=== PATIENT | female | born 1930 | race Caucasian/White ===

== ENCOUNTER 2016-07-16 11:05 | Emergency (ER) | payer MEDICARE ==
[2016-07-16 11:52] VITALS: BP 111/60
--- NOTE | 2016-07-16 12:01 | UC ---
Throat Pain/Nasal Tal HPI - HPI Summary HPI Summary: COUGH X 1 WEEKS + NASAL CONGESTION, PND, NO FEVER, NO CHILLS - History of Current Complaint Chief Complaint: UCRespiratory Stated Complaint: COUGH,CONGESTION,TIGHT CHEST Time Seen by Provider: 07/16/16 11:54 Hx Obtained From: Patient Hx Last Menstrual Period: n/a Onset/Duration: Gradual Onset, Lasting Days - 7, Still Present Severity: Moderate Cough: Nonproductive Associated Signs & Symptoms: Positive: Sinus Discomfort, Nasal Discharge. Negative: Wheezing, Fever, Rash - Allergies/Home Medications Allergies/Adverse Reactions: Allergies Allergy/AdvReac Type Severity Reaction Status Date / Time Codeine Allergy Intermediate Vomiting Verified 07/16/16 11:52 Home Medications: Home Medications DULoxetine DR CAP* [Cymbalta CAP*] 30 mg PO DAILY 07/16/16 [History Confirmed ] Insulin Lispro [Humalog Kwikpen] 4 - 16 unit SC TID AC 07/16/16 [History Confirmed 07/16/16] Omeprazole CAP* [Prilosec CAP* 20 MG] 20 mg PO DAILY 07/16/16 [History Confirmed 07/16/16] amLODIPine TAB* [Norvasc 5 mg TAB*] 5 mg PO DAILY 07/16/16 [History Confirmed ] PMH/Surg Hx/FS Hx/Imm Hx Endocrine History Of: Reports: Diabetes - INSULIN DEPENDENT Cardiovascular History Of: Reports: Cardiac Disorders - [place], Hypertension Denies: Pacemaker/ICD, Congestive Heart Failure Respiratory History Of: Denies: Asthma GI/ History Of: Denies: Renal Disease Neurological History Of: Reports: CVA Psychological History Of: Reports: Depression - Surgical History Surgical History: Yes Surgery Procedure, Year, and Place: hysterectomy; cardiac stents - Family History Known Family History: Negative: Diabetes - Social History Alcohol Use: None Substance Use Type: None Smoking Status (MU): Never Smoked Tobacco Have You Smoked in the Last Year: No - Immunization History Most Recent Influenza Vaccination: 2013 Most Recent Tetanus Shot: Within 10 years Most Recent Pneumonia Vaccination: 2011 Review of Systems Constitutional: Chills, Fatigue Skin: Negative Eyes: Negative ENT: Nasal Discharge Respiratory: Cough Cardiovascular: Negative All Other Systems Reviewed And Are Negative: Yes Physical Exam Triage Information Reviewed: Yes Appearance: Well-Appearing, No Pain Distress, Well-Nourished Vital Signs: Initial Vital Signs Temp 98.4 F 07/16/16 11:50 Pulse 86 07/16/16 11:50 Resp 20 07/16/16 11:50 BP 111/60 07/16/16 11:50 Pulse Ox 98 07/16/16 11:50 Vital Signs Reviewed: Yes Eye Exam: Normal Eyes: Positive: Conjunctiva Clear ENT: Positive: Normal ENT inspection, Hearing grossly normal, Nasal congestion, Nasal drainage. Negative: Pharyngeal erythema Neck: Positive: Supple, Nontender, No Lymphadenopathy Respiratory: Positive: Chest non-tender, Lungs clear, Normal breath sounds Cardiovascular: Positive: RRR, No Murmur, Pulses Normal Skin Exam: Normal Throat Pain/Nasal Course/Dx - Differential Dx/Diagnosis Provider Diagnoses: URI Discharge - Discharge Plan Condition: Stable Disposition: HOME Prescriptions: Benzonatate CAP* [Tessalon 100 MG CAP*] 100 mg PO TID PRN #30 cap PRN Reason: Cough Patient Education Materials: Upper Respiratory Infection (ED) Referrals: Indra Armijo MD [Primary Care Provider] - 5 Days
== END 2016-07-16 12:32 | disposition home or self-care (01) ==
LOC: UCCORT 11:05
DX: J06.9 Acute upper respiratory infection, unspecified (principal); E11.9 Type 2 diabetes mellitus without complications; Z79.4 Long term (current) use of insulin; I21.3 ST elevation (STEMI) myocardial infarction of unspecified site; Z95.5 Presence of coronary angioplasty implant and graft; I15.9 Secondary hypertension, unspecified; Z86.73 Personal history of transient ischemic attack (TIA), and cerebral infarction without residual deficits; F32.9 Major depressive disorder, single episode, unspecified; Z90.710 Acquired absence of both cervix and uterus; Z88.5 Allergy status to narcotic agent
CPT/HCPCS: 99212; G0463

== ENCOUNTER 2017-07-22 11:06 | Emergency (ER) | payer MEDICARE ==
[2017-07-22] MEDS ORDERED: NS 0.9% 1000 ML* 1,000 ML IV SCH (12:15)
--- NOTE | 2017-07-22 12:30 | RAD ---
Indication: Abdominal pain. Single frontal view of the chest performed at 1212 hours was reviewed. Comparison is made with previous exam dated February 24, 2016. No mediastinal shift is noted. Heart is of normal size and configuration. Lung barrera appear clear. IMPRESSION: NO ACTIVE CARDIOPULMONARY DISEASE IS NOTED.
[2017-07-22 12:46] LABS: ABS Basophils 0.1 10^3/ul (0-0.2); ABS Eosinophils 0.2 10^3/ul (0-0.6); ABS Lymphocytes 2.2 10^3/ul (1.0-4.8); ABS Monocytes 0.6 10^3/ul (0-0.8); ABS Neutrophils 3.7 10^3/ul (1.5-7.7); ABS Nucleated RBC 0 10^3/ul; Hematocrit 34 % (35-47); Hemoglobin 11.7 g/dl (12.0-16.0); Lymphocyte % 32.2 % (25-47); Mean Corpuscular HGB Conc 34 g/dl (31-36); Mean Corpuscular Hemoglobin 32 pg (27-31); Mean Corpuscular Volume 92 fL (80-97); Nucleated Red Blood Cells % 0.1; Platelet Count 142 10^3/ul (150-450); Red Blood Count 3.72 10^6/ul (4.0-5.4); Red Cell Distribution Width 13 % (10.5-15); White Blood Count 6.8 10^3/ul (3.5-10.8)
[2017-07-22 12:55] LABS: INR 0.86 (0.77-1.02)
[2017-07-22 13:24] LABS: EGFR Non-African American 29.9 (>60)
--- NOTE | 2017-07-22 13:31 | RAD ---
Indication: Right upper quadrant pain. Real-time sonography of the right upper quadrant was performed. The liver measures 15.4 cm in length. No focal lesions or intrahepatic ductal dilatation is noted. The gallbladder demonstrates no gallstones, pericholecystic fluid or wall thickening. The common duct measures up to 4.8 mm. The visualized portions of the pancreas head and proximal body are unremarkable. The right kidney measures 9.0 x 4.4 x 4.7 cm without hydronephrosis. IMPRESSION: No evidence of cholelithiasis or biliary duct dilatation is noted.
--- NOTE | 2017-07-22 15:28 | RAD ---
Indication: Abdominal pain. CT of the abdomen and pelvis was performed without oral or IV contrast administration. Coronal and sagittal reconstructed images were obtained. Comparison is made with previous exam dated September 29, 2012. Lung bases demonstrate no pleural fluid, nodules or masses. Heart is of normal size without evidence of pericardial effusion. Liver is normal in size. No focal lesions or intrahepatic ductal dilatation is noted. Gallbladder demonstrates no calcified gallstones. No pericholecystic fluid or wall thickening is noted. Common duct is not dilated. Pancreas demonstrates no mass or pancreatic duct dilatation. No adrenal masses are noted. The kidneys demonstrate no hydronephrosis. Atherosclerotic aorta is noted. No dilated loops of bowel are noted. The colon is filled with stool. CT of the pelvis demonstrates no retroperitoneal or pelvic lymphadenopathy. The urinary bladder is otherwise unremarkable. Patient is status post hysterectomy. No free fluid is identified. No hernias are noted. Lumbar spine demonstrates degenerative disc disease at multiple levels. IMPRESSION: No obstructive uropathy is noted. No abnormally dilated loops of bowel are noted. No other masses or fluid collections are noted.
[2017-07-22 15:51] LABS: Urine Appearance Clear; Urine Blood Negative (Negative); Urine Color Yellow; Urine Ketones Negative (Negative); Urine Protein Negative (Negative); Urine Specific Gravity 1.016 (1.010-1.030); Urine Urobilinogen Negative (Negative)
--- NOTE | 2017-07-22 16:31 | ED ---
Milan Mcgraw Jennifer, scribed for Anand Rosenberg MD on 07/22/17 at 1201 . Abdominal Pain/Female - HPI Summary HPI Summary: The patient is an 87 year old female who presents with abdominal pain and right flank pain for one week. She rates the pain a 7-8/10, but states it has worsened in the last couple of days. The patient complains of diffuse abdominal tenderness but states its the worst at the RUQ, and it radiates to her right flank. She additionally complains of chills, intermittent fevers, feeling gassy after eating, nausea, diarrhea and constipation. Her last bowel movement was this morning, and it was normal/dark. The patient denies blood in the stool, dysuria, hematuria, shortness of breath, and chest pain. - History of Current Complaint Chief Complaint: EDAbdPain Stated Complaint: ABD/FLANK PAIN Time Seen by Provider: 07/22/17 11:38 Hx Obtained From: Patient Hx Last Menstrual Period: n/a Onset/Duration: Sudden Onset, Lasting Weeks - about 1 week, Still Present Timing: Constant Severity Initially: Moderate Severity Currently: Moderate Pain Intensity: 6 Pain Scale Used: 0-10 Numeric Location: Diffuse, Discrete At: RUQ - Worse at Radiates: Yes Radiates to: Flank - right Aggravating Factor(s): Nothing Alleviating Factor(s): Nothing Associated Signs and Symptoms: Positive: Other: - flank pain, nausea, gaseous after eating, chills, intermittent fever, diarrhea and constipation. NEGATIVE: blood in stool, shortness of breath, chest pain, dysuria, hematuria. Allergies/Adverse Reactions: Allergies Allergy/AdvReac Type Severity Reaction Status Date / Time codeine Allergy Vomiting Verified 07/22/17 11:08 Home Medications: Home Medications Atorvastatin* [Lipitor*] 10 mg PO QPM 07/22/17 [History Confirmed 07/22/17] DULoxetine CAP* [Cymbalta CAP*] 60 mg PO DAILY 07/22/17 [History Confirmed ] Insulin GLARGINE(*) [Lantus(*)] 30 units SUBCUT QPM 07/22/17 [History Confirmed 07/22/17] Insulin LISPRO* [HumaLOG*] 0 units SUBCUT DIRECTED 07/22/17 [History Confirmed 07/22/17] Metoprolol Succinate XL TAB* [Toprol XL TAB*] 25 mg PO QPM 07/22/17 [History Confirmed 07/22/17] amLODIPine TAB* [Norvasc 5 mg TAB*] 5 mg PO QPM 07/22/17 [History Confirmed ] PMH/Surg Hx/FS Hx/Imm Hx Endocrine/Hematology History: Reports: Hx Diabetes - INSULIN DEPENDENT Cardiovascular History: Reports: Hx Hypertension, Other Cardiovascular Problems/ Disorders - Stent 07/10/2014, CVA, DM II, CHRONIC KIDNEY DISEASE STAGE III Denies: Hx Congestive Heart Failure, Hx Pacemaker/ICD Respiratory History: Denies: Hx Asthma GI History: Reports: Hx Irritable Bowel History: Denies: Hx Renal Disease Musculoskeletal History: Reports: Hx Back Problems Sensory History: Reports: Hx Contacts or Glasses Denies: Hx Hearing Aid Opthamlomology History: Reports: Hx Contacts or Glasses Neurological History: Reports: Other Neuro Impairments/Disorders - STROKE Psychiatric History: Reports: Hx Depression Denies: Hx Panic Disorder - Surgical History Surgery Procedure, Year, and Place: hysterectomy; cardiac stents Hx Anesthesia Reactions: No - Immunization History Date of Tetanus Vaccine: PT STATES UNSURE Date of Influenza Vaccine: NONE Infectious Disease History: No Infectious Disease History: Reports: Hx Shingles - HISTORY OF, Hx Tuberculosis - HISTORY OF (DOCUMENTED IN CHART BUT PATIENT DENIES) Denies: Traveled Outside the [place] in Last 30 Days - Family History Known Family History: Negative: Diabetes - Social History Alcohol Use: None Substance Use Type: Reports: None Smoking Status (MU): Never Smoked Tobacco Have You Smoked in the Last Year: No Review of Systems Negative: Chest Pain Negative: Shortness Of Breath Gastrointestinal: Other - Constipation Positive: Abdominal Pain, Diarrhea, Nausea, Other - Gassy after eating Positive: flank pain - right side. Negative: dysuria, hematuria All Other Systems Reviewed And Are Negative: Yes Physical Exam - Summary Physical Exam Summary: General: well-appearing, no pain distress Skin: warm, color reflects adequate perfusion, dry Head: normal Eyes: EOMI, MAGALI ENT: normal Neck: supple, nontender Respiratory: CTA, breath sounds present Cardiovascular: RRR Abdomen: soft, RUQ tenderness Bowel: hypoactive bowel sounds Musculoskeletal: normal, strength/ROM intact Neurological: normal, sensory/motor intact, A&O x3 Psychological: affect/mood appropriate Triage Information Reviewed: Yes Vital Signs On Initial Exam: Initial Vitals Temp Pulse Resp BP Pulse Ox 97.9 F 80 14 154/71 98 07/22/17 11:08 07/22/17 11:08 07/22/17 11:08 07/22/17 11:08 07/22/17 11:08 Vital Signs Reviewed: Yes Diagnostics - Vital Signs Vital Signs Temp Pulse Resp BP Pulse Ox 07/22/17 11:08 97.9 F 80 14 154/71 98 - Laboratory Lab Results: Lab Results 07/22/17 07/22/17 07/22/17 Range/Units 12:35 12:35 12:35 WBC (3.5-10.8) 10^3/ul RBC (4.0-5.4) 10^6/ul Hgb (12.0-16.0) g/dl Hct (35-47) % MCV (80-97) fL MCH (27-31) pg MCHC (31-36) g/dl RDW (10.5-15) % Plt Count (150-450) 10^3/ul MPV (7.4-10.4) um3 Neut % (Auto) (38-83) % Lymph % (Auto) (25-47) % [place] % (Auto) (0-7) % Eos % (Auto) (0-6) % Baso % (Auto) (0-2) % Absolute Neuts (auto) (1.5-7.7) 10^3/ul Absolute Lymphs (auto) (1.0-4.8) 10^3/ul Absolute Monos (auto) (0-0.8) 10^3/ul Absolute Eos (auto) (0-0.6) 10^3/ul Absolute Basos (auto) (0-0.2) 10^3/ul Absolute Nucleated RBC 10^3/ul Nucleated RBC % INR (Anticoag Therapy) 0.86 (0.77-1.02) APTT 27.6 (26.0-36.3) seconds Sodium 135 L (139-145) mmol/L Potassium 5.4 H (3.5-5.0) mmol/L Chloride 103 (101-111) mmol/L Carbon Dioxide 24 (22-32) mmol/L Anion Gap 8 (2-11) mmol/L BUN 35 H (6-24) mg/dL Creatinine 1.63 H (0.51-0.95) mg/dL Est GFR ( Amer) 38.5 (>60) Est GFR (Non-Af Amer) 29.9 (>60) BUN/Creatinine Ratio 21.5 H (8-20) Glucose 280 H (70-100) mg/dL Lactic Acid (0.5-2.0) mmol/L Calcium 9.7 (8.6-10.3) mg/dL Magnesium 1.5 L (1.9-2.7) mg/dL Total Bilirubin 0.40 (0.2-1.0) mg/dL AST 13 (13-39) U/L ALT 12 (7-52) U/L Alkaline Phosphatase 52 (34-104) U/L Total Creatine Kinase 66 (10-223) U/L CK-MB (CK-2) 3.1 (0.6-6.3) ng/mL Troponin I 0.00 (<0.04) ng/mL C-Reactive Protein 1.72 (< 5.00) mg/L B-Natriuretic Peptide 61 ( - 100) pg/mL Total Protein 7.1 (6.4-8.9) g/dL Albumin 4.1 (3.2-5.2) g/dL Globulin 3.0 (2-4) g/dL Albumin/Globulin Ratio 1.4 (1-3) Lipase 63 (11.0-82.0) U/L TSH 1.01 (0.34-5.60) mcIU/mL Urine Color Urine Appearance Urine pH (5-9) Ur Specific [place] (1.010-1.030) Urine Protein (Negative) Urine Ketones (Negative) Urine Blood (Negative) Urine Nitrate (Negative) Urine Bilirubin (Negative) Urine Urobilinogen (Negative) Ur Leukocyte Esterase (Negative) Urine WBC (Auto) (Absent) Urine RBC (Auto) (Absent) Ur Squamous Epith Cells (Absent) Urine Bacteria (Absent) Urine Glucose (Negative) 07/22/17 07/22/17 07/22/17 Range/Units 12:35 12:35 15:30 WBC 6.8 (3.5-10.8) 10^3/ul RBC 3.72 L (4.0-5.4) 10^6/ul Hgb 11.7 L (12.0-16.0) g/dl Hct 34 L (35-47) % MCV 92 (80-97) fL MCH 32 H (27-31) pg MCHC 34 (31-36) g/dl RDW 13 (10.5-15) % Plt Count 142 L (150-450) 10^3/ul MPV 10.0 (7.4-10.4) um3 Neut % (Auto) 54.3 (38-83) % Lymph % (Auto) 32.2 (25-47) % [place] % (Auto) 9.5 H (0-7) % Eos % (Auto) 3.0 (0-6) % Baso % (Auto) 1.0 (0-2) % Absolute Neuts (auto) 3.7 (1.5-7.7) 10^3/ul Absolute Lymphs (auto) 2.2 (1.0-4.8) 10^3/ul Absolute Monos (auto) 0.6 (0-0.8) 10^3/ul Absolute Eos (auto) 0.2 (0-0.6) 10^3/ul Absolute Basos (auto) 0.1 (0-0.2) 10^3/ul Absolute Nucleated RBC 0 10^3/ul Nucleated RBC % 0.1 INR (Anticoag Therapy) (0.77-1.02) APTT (26.0-36.3) seconds Sodium (139-145) mmol/L Potassium (3.5-5.0) mmol/L Chloride (101-111) mmol/L Carbon Dioxide (22-32) mmol/L Anion Gap (2-11) mmol/L BUN (6-24) mg/dL Creatinine (0.51-0.95) mg/dL Est GFR ( Amer) (>60) Est GFR (Non-Af Amer) (>60) BUN/Creatinine Ratio (8-20) Glucose (70-100) mg/dL Lactic Acid 1.9 (0.5-2.0) mmol/L Calcium (8.6-10.3) mg/dL Magnesium (1.9-2.7) mg/dL Total Bilirubin (0.2-1.0) mg/dL AST (13-39) U/L ALT (7-52) U/L Alkaline Phosphatase (34-104) U/L Total Creatine Kinase (10-223) U/L CK-MB (CK-2) (0.6-6.3) ng/mL Troponin I (<0.04) ng/mL C-Reactive Protein (< 5.00) mg/L B-Natriuretic Peptide ( - 100) pg/mL Total Protein (6.4-8.9) g/dL Albumin (3.2-5.2) g/dL Globulin (2-4) g/dL Albumin/Globulin Ratio (1-3) Lipase (11.0-82.0) U/L TSH (0.34-5.60) mcIU/mL Urine Color Yellow Urine Appearance Clear Urine pH 5.0 (5-9) Ur Specific [place] 1.016 (1.010-1.030) Urine Protein Negative (Negative) Urine Ketones Negative (Negative) Urine Blood Negative (Negative) Urine Nitrate Negative (Negative) Urine Bilirubin Negative (Negative) Urine Urobilinogen Negative (Negative) Ur Leukocyte Esterase 1+ A (Negative) Urine WBC (Auto) Trace(0-5/hpf) (Absent) Urine RBC (Auto) Trace(0-2/hpf) (Absent) Ur Squamous Epith Cells Present A (Absent) Urine Bacteria Absent (Absent) Urine Glucose 1+(50 mg/dl) A (Negative) Result Diagrams: 07/22/17 12:35 07/22/17 12:35 Lab Statement: Any lab studies that have been ordered have been reviewed, and results considered in the medical decision making process. - Radiology CXR Xray Interpretation: No Acute Changes - NO ACTIVE CARDIOPULMONARY DISEASE IS NOTED. Dr. Rosenberg has reviewed this report. Radiology Interpretation Completed By: Radiologist - CT CT Abd/Pel CT Interpretation: No Acute Changes - No obstructive uropathy is noted. No abnormally dilated loops of bowel are noted. No other masses or fluid collections are noted. Dr. Rosenberg has reviewed this report. 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 Interpreted by a radiologist. IMPRESSION: No evidence of cholelithiasis or biliary duct dilatation is noted. Dr. Rosenberg has reviewed this report. Abdominal Pain Fem Course/Dx - Course Course Of Treatment: Medications reviewed. Allergies noted. BP noted and advised to follow up with PCP. DISCUSSED RESULTS WITH PATIENT AND HER FAMILY. NO PEAKED T WAVES ON EKG. NO CHEST PAIN. THEY PLAN TO F/U WITH DR ZHANG; RETURN IF WORSE. - Diagnoses Provider Diagnoses: HTN (hypertension), Abdominal pain, Hyperkalemia Discharge - Sign-Out/Discharge Documenting (check all that apply): Discharge - Discharge Plan Condition: Stable Disposition: HOME Patient Education Materials: Acute Abdominal Pain (ED), Hyperkalemia (ED) Referrals: Indra Armijo MD [Primary Care Provider] - Additional Instructions: FOLLOW UP WITH YOUR DOCTOR. RETURN TO THE EMERGENCY DEPARTMENT FOR ANY WORSENING OF YOUR CONDITION; PAIN, FEVER, VOMITING, BLOOD IN YOUR STOOL, YOU FEEL ILL OR QUESTIONS OR CONCERNS. - Billing Disposition and Condition Condition: STABLE Disposition: HOME The documentation as recorded by the Milan mauricio Jennifer accurately reflects the service I personally performed and the decisions made by me, Anand Rosenberg MD.
[2017-07-22 16:47] VITALS: BP 140/64
== END 2017-07-22 16:47 | disposition home or self-care (01) ==
LOC: ED 11:06
DX: R10.11 Right upper quadrant pain (principal); I12.9 Hypertensive chronic kidney disease with stage 1 through stage 4 chronic kidney disease, or unspecified chronic kidney disease; E11.22 Type 2 diabetes mellitus with diabetic chronic kidney disease; N18.3 Chronic kidney disease, stage 3 (moderate); Z79.4 Long term (current) use of insulin; E87.5 Hyperkalemia; Z79.899 Other long term (current) drug therapy; Z86.73 Personal history of transient ischemic attack (TIA), and cerebral infarction without residual deficits; Z95.5 Presence of coronary angioplasty implant and graft; R94.31 Abnormal electrocardiogram [ECG] [EKG]; I45.10 Unspecified right bundle-branch block
CPT/HCPCS: 36415; 71045; 74176; 76705; 80053; 81003; 81015; 82550; 82553; 83605; 83690; 83735; 83880; 84443; 84484; 85025; 85610; 85730; 86140; 87086; 93005; 99283

== ENCOUNTER 2018-05-26 12:24 | Emergency (ER) | payer MEDICARE ==
--- NOTE | 2018-05-26 12:44 | ED ---
HPI Chest Pain - HPI Summary HPI Summary: This patient is a 88 year old F presenting to [facility] accompanied by her grand- daughter and great granddaughter, who live with her, with a chief complaint of left anterior chest pain since yesterday afternoon around 1500, before a dinner of mac and cheese with diet Pepsi, until 5am this morning. Patient reports diaphoresis, one bout of vomiting, and a headache that is currently resolved. Pain is 6/10 at its worse. She states now, currently improved, chest pain is midline with epigastric pain and a acidy taste in her throat. She additionally reports a dry acidy cough and a history of GERD. Denies any other abdominal pain, urinary discomfort, and new LE pain. Recent influenza contact. Patient has previous MA four years ago with stents placed. Patient took 81mg of ASA this morning. PMHx includes CVA and DM. Medications include duloxetine, metoprolol, amlodipine, humalog, ASA, Tylenol, and vitamin D. - History of Current Complaint Chief Complaint: EDChestPainROMI Time Seen by Provider: 05/26/18 12:36 Hx Obtained From: Patient, Family/Readiness Paraprofessional - granddaughter and great granddaughter Hx Last Menstrual Period: n/a Onset/Duration: Started Days Ago Time of Onset: 15:00 - yesterday Timing: Constant Initial Severity: Mild Current Severity: Moderate Pain Intensity: 6 Pain Scale Used: 0-10 Numeric Chest Pain Location: Mid Sternal, Left Anterior Chest Pain Radiates: Yes Chest Pain Radiates To:: Neck Character: Burning Aggravating Factor(s): Other: - possible Pepsi Alleviating Factor(s): Nothing Associated Signs and Symptoms: Positive: Chest Pain, Diaphoresis, Cough, Vomiting Related History: Similar Episode/Dx as: - MA - Allergy/Home Medications Allergies/Adverse Reactions: Allergies Allergy/AdvReac Type Severity Reaction Status Date / Time codeine Allergy Severe Vomiting Verified 05/26/18 12:32 morphine Allergy Severe Vomiting Verified 05/26/18 12:32 Home Medications: Home Medications Aspirin 81 mg CHEW TAB* 81 mg PO DAILY 05/26/18 [History Confirmed 05/26/18] Cholecalciferol TAB* [Vitamin D TAB*] 2,000 units PO EVERY OTHER DAY 05/26/18 [ History Confirmed 05/26/18] Tylenol TAB* 1,000 mg PO Q6HR PRN 05/26/18 [History Confirmed 05/26/18] PMH/Surg Hx/FS Hx/Imm Hx Previously Healthy: No Endocrine/Hematology History: Reports: Hx Diabetes - Type II requiring insulin Cardiovascular History: Reports: Hx Hypertension, Hx Myocardial Infarction, Other Cardiovascular Problems/Disorders - Cardiac Stent 07/10/2014, CVA, DM II, CHRONIC KIDNEY DISEASE STAGE III Denies: Hx Congestive Heart Failure, Hx Pacemaker/ICD Respiratory History: Reports: Other Respiratory Problems/Disorders - hx TB Denies: Hx Asthma GI History: Reports: Hx Gastroesophageal Reflux Disease, Hx Irritable Bowel History: Reports: Hx Renal Disease - CKD stage III Musculoskeletal History: Reports: Hx Back Problems Sensory History: Reports: Hx Contacts or Glasses Denies: Hx Hearing Aid Opthamlomology History: Reports: Hx Contacts or Glasses Neurological History: Reports: Hx CVA - 10/2013, Other Neuro Impairments/ Disorders - hx Shingles Psychiatric History: Reports: Hx Depression Denies: Hx Panic Disorder - Surgical History Surgery Procedure, Year, and Place: hysterectomy; cardiac stents Hx Anesthesia Reactions: No - Immunization History Date of Tetanus Vaccine: PT STATES UNSURE Infectious Disease History: No Infectious Disease History: Reports: Hx Shingles, Hx Tuberculosis - HISTORY OF ( DOCUMENTED IN CHART BUT PATIENT DENIES) Denies: Traveled Outside the [place] in Last 30 Days - Family History Known Family History: Negative: Diabetes - Social History Lives: With Family Alcohol Use: None Substance Use Type: Reports: None Smoking Status (MU): Never Smoked Tobacco Have You Smoked in the Last Year: No Review of Systems Positive: Skin Diaphoresis Positive: Other - Acid taste in her mouth Positive: Chest Pain Positive: Cough Positive: Abdominal Pain, Vomiting Positive: no symptoms reported Musculoskeletal: Negative Skin: Negative Neurological: Negative Psychological: Normal All Other Systems Reviewed And Are Negative: Yes Physical Exam - Summary Physical Exam Summary: Appearance: Well-appearing, moderate pain distress, well-nourished Skin: Warm, color reflects adequate perfusion, dry Head: Normal Head/Face inspection, atraumatic Eyes: Conjunctiva clear ENT: Normal inspection Neck: Supple, no nodes, no JVD Respiratory: Lungs clear, normal breath sounds, no respiratory distress Cardio: RRR, No murmur, pulses normal, brisk capillary refill Abdomen: Soft, nontender Bowel sounds: Present Musculoskeletal: Strength Intact/ROM intact, no calf tenderness, no edema. Psychological: Normal Neuro: Alert, muscle tone normal, no focal deficit Triage Information Reviewed: Yes Vital Signs On Initial Exam: Initial Vitals Temp Pulse Resp BP Pulse Ox 97.1 F 83 16 160/75 98 05/26/18 12:28 05/26/18 12:28 05/26/18 12:28 05/26/18 12:28 05/26/18 12:28 Vital Signs Reviewed: Yes Diagnostics - Vital Signs Vital Signs Temp Pulse Resp BP Pulse Ox 05/26/18 12:28 97.1 F 83 16 160/75 98 - Laboratory Result Diagrams: 05/26/18 13:17 05/26/18 13:17 Lab Statement: Any lab studies that have been ordered have been reviewed, and results considered in the medical decision making process. - Radiology CXR Radiology Interpretation Completed By: Radiologist Summary of Radiographic Findings: NO ACTIVE CARDIOPULMONARY DISEASE. ED Physician has reviewed this report. - EKG 1244 Cardiac Rate: NL - 72 BPM EKG Rhythm: Sinus Rhythm ST Segment: Non-Specific Ectopy: None EKG Comparison: No Significant Change - c/w 07/22/17 Summary of EKG Findings: nml AVCT prolonged IVCT with RBBB, nml QTc. No acute changes. Re-Evaluation - Re-Evaluation First Eval Re-Evaluation Time: 13:05 Change: Unchanged Comment: Pt continues to have reflux symptoms with acid taste, and midsternal burning chest pain. Will try GI cocktail. Second Eval Re-Evaluation Time: 14:50 Change: Unchanged Comment: Pt continues to have GERD symptoms, will try protonix 40mg IV. Third Eval Re-Evaluation Time: 16:40 Change: Improved Comment: Discussed discharge disposition. Pt and family agree. Discussed GERD instructions. Pt is pain free. Did not like the GI cocktail. Did get relief from Protonix. Chest Pain Course/Dx - Course Course Of Treatment: 88 year old F presenting to [facility] accompanied by her grand- daughter and great granddaughter with a chief complaint of left anterior chest pain since yesterday afternoon around 1500, before a dinner of mac and cheese with diet pepsi, until 5am this morning. Patient reports diaphoresis, one bout of vomiting, and a headache that is currently resolved. Pain is 6/10 at its worse. She states now, currently improved, chest pain is midline with epigastric pain and a acidy taste in her throat. She additionally reports a dry acidy cough and a history of GERD. EKG reveals NSR at 72 BPM, nml AVCT prolonged IVCT with RBBB, nml QTc; no acute changes. No change from previous. CXR reveals, " NO ACTIVE CARDIOPULMONARY DISEASE" as per radiologist. Bloodwork reveals RBC 3.96 with normal WBC count and H/H, Platelets 136, MPV 10.6, D- dimer 478 (this is in normal range for age adjusted D-dimer), sodium 132, BUN/ creatinine ratio 24.4, glucose 441 (treated with normal insulin 10 U IV in ED), lactic acid 2.5 (no sepsis or ongoing issue), magnesium 1.2, AST 12, thyroxine 4.7 with normal TSH. Her stage III kidney disease is stable. Flu swab is negative. First troponin 0.0, second troponin 0.01. Patient is given GI cocktail (viscous lidocaine and liquid antacid) and did not like it but got some relief, and then 40mg of IV protonix to relieve GERD symptoms. Patient is addtionally given 10 units of insulin for glucose of 441. This was given close to discharge. Pt will repeat it this evening before evening meds and going to bed. Results reviewed with patient and family. Patient will be discharged home and is agreeable with this plan. Medications, allergies, and nursing notes reviewed. - Diagnoses Provider Diagnoses: Chest pain, GERD (gastroesophageal reflux disease), Hyperglycemia due to type 2 diabetes mellitus, Chronic kidney disease, stage 3, Stage III chronic kidney disease - Critical Care Time Critical Care Time: 30-74 min Discharge - Sign-Out/Discharge Documenting (check all that apply): Patient Departure - discharge Patient Received Moderate/Deep Sedation with Procedure: No - Discharge Plan Condition: Stable Disposition: HOME Prescriptions: Pantoprazole TAB * [Protonix TAB*] 40 mg PO DAILY #30 tab Patient Education Materials: Chest Pain (ED), Gastroesophageal Reflux Disease ( ED) Referrals: Indra Armijo MD [Primary Care Provider] - 2 Days Additional Instructions: We did not find a serious cause for your chest pain today. We think that some of your discomfort is from reflux, (GERD), or hiatal hernia. We recommend that you try some protonix 40mg orally daily, and that you follow up with with Dr. Armijo in the next 2 days. We gave you a "GI cocktail" that has lidocaine and Maalox as an attempt to help with the reflux. We also gave you some protonix IV. Your glucose was over 400 , so we gave you insulin 10U IV. You should follow your glucoses carefully. Return to the ER if any new or worsening symptoms. - Billing Disposition and Condition Condition: STABLE Disposition: Home - Attestation Statements Document Initiated by Alfredo: Yes Documenting Scribe: Tatiana Pandya Provider For Whom Alfredo is Documenting (Include Credential): Carin Hickman MD Scribe Attestation: Tatiana Mcgraw, scribed for Carin Hickman MD on 05/28/18 at 0142. Scribe Documentation Reviewed: Yes Provider Attestation: The documentation as recorded by the Tatiana mauricio accurately reflects the service I personally performed and the decisions made by , Carin Hickman MD Status of Scribe Document: Viewed
[2018-05-26] MEDS ORDERED: Lidocaine 2% VISCOUS* 15 ML UDC PO ONE (13:08)
[2018-05-26] MEDS ORDERED: Al Hydrox/Mg Hydrox/Simet LIQ* 30 ML UDC PO ONE (13:08)
[2018-05-26 13:30] LABS: Influenza A Molecular NEGATIVE (Negative); Influenza B Molecular NEGATIVE (Negative)
[2018-05-26 13:39] LABS: ABS Basophils 0 10^3/ul (0-0.2); ABS Eosinophils 0.2 10^3/ul (0-0.6); ABS Lymphocytes 1.6 10^3/ul (1.0-4.8); ABS Monocytes 0.6 10^3/ul (0-0.8); ABS Neutrophils 4.9 10^3/ul (1.5-7.7); ABS Nucleated RBC 0 10^3/ul; Eosinophil % 2.2 %; Hematocrit 37 % (35-47); Hemoglobin 12.2 g/dl (12.0-16.0); Lymphocyte % 22.1 %; Mean Corpuscular HGB Conc 33 g/dl (31-36); Mean Corpuscular Hemoglobin 31 pg (27-31); Mean Corpuscular Volume 93 fL (80-97); Mean Platelet Volume 10.6 fL (7.4-10.4); Nucleated Red Blood Cells % 0.1; Platelet Count 136 10^3/ul (150-450); Red Blood Count 3.96 10^6/ul (4.00-5.40); Red Cell Distribution Width 13 % (10.5-15); White Blood Count 7.2 10^3/ul (3.5-10.8)
[2018-05-26 13:40] LABS: Activated Partial Thrombo Time 26.5 seconds (26.0-36.3); INR 0.87 (0.77-1.02)
[2018-05-26] MEDS ORDERED: Al Hydrox/Mg Hydrox/Simet LIQ* 30 ML UDC ONE (13:42)
[2018-05-26] MEDS ORDERED: Lidocaine 2% VISCOUS* 15 ML UDC ONE (13:42)
[2018-05-26 13:44] LABS: Albumin 4.4 g/dL (3.2-5.2); Albumin/Globulin Ratio 1.6 (1-3); BUN/Creatinine Ratio 24.4 (8-20); Calcium 9.7 mg/dL (8.6-10.3); EGFR Non-African American 31.4 (>60); Globulin 2.8 g/dL (2-4); Magnesium 1.2 mg/dL (1.9-2.7); Potassium 4.7 mmol/L (3.5-5.0); Total Bilirubin 0.5 mg/dL (0.2-1.0); Total Protein 7.2 g/dL (6.4-8.9)
[2018-05-26 13:48] LABS: CKMB ng/mL 4.8 ng/mL (0.6-6.3)
[2018-05-26 14:18] LABS: T4, Total 4.7 mcg/dL (6.09-12.23)
[2018-05-26 14:22] LABS: TSH (Thyroid Stimulating Horm) 1.06 mcIU/mL (0.34-5.60)
[2018-05-26] MEDS ORDERED: Pantoprazole IV* 40 MG IV ONE (14:51)
[2018-05-26] MEDS ORDERED: Insulin REGULAR(*) 1 UNITS UNIT IV PUSH ONE (16:27)
[2018-05-26] MEDS ORDERED: Insulin REGULAR(*) 1 UNITS UNIT ONE (16:30)
[2018-05-26 16:56] VITALS: BP 128/70
== END 2018-05-26 16:58 | disposition home or self-care (01) ==
LOC: ED 12:24
DX: R07.9 Chest pain, unspecified (principal); K21.9 Gastro-esophageal reflux disease without esophagitis; Z79.4 Long term (current) use of insulin; Z79.82 Long term (current) use of aspirin; K58.9 Irritable bowel syndrome, unspecified; F32.9 Major depressive disorder, single episode, unspecified; I12.9 Hypertensive chronic kidney disease with stage 1 through stage 4 chronic kidney disease, or unspecified chronic kidney disease; E11.22 Type 2 diabetes mellitus with diabetic chronic kidney disease; N18.3 Chronic kidney disease, stage 3 (moderate)
CPT/HCPCS: 36415; 71045; 80053; 82550; 82553; 83605; 83735; 83880; 84436; 84443; 84484; 85025; 85379; 85610; 85730; 93005; 96374; 99283; A9270-GY

== ENCOUNTER → 2018-08-10 16:43 | Emergency (ER) | payer MEDICARE ==
--- NOTE | 2018-08-10 17:45 | ED ---
Skin Complaint - HPI Summary HPI Summary: 88-year-old male presents with rash to right leg since yesterday. He states that she got bit by what she believes is a spider yesterday. She states there was little bump to the area and then afterwards she started to develop the rash. She states the rash is very itchy. She has never had this rash before. States she is not on blood thinners. She is diabetic. She denies any increased swelling to her legs. Denies any fevers. She put some Benadryl cream on the area which helped. No new soaps or products. - History of Current Complaint Chief Complaint: EDRashSkinAbscess Time Seen by Provider: 08/10/18 17:32 Stated Complaint: INSECT BITES ON HER LEG Hx Last Menstrual Period: n/a Pain Intensity: 0 - Allergy/Home Medications Allergies/Adverse Reactions: Allergies Allergy/AdvReac Type Severity Reaction Status Date / Time codeine Allergy Severe Vomiting Verified 08/10/18 16:56 morphine Allergy Severe Vomiting Verified 08/10/18 16:56 Home Medications: Home Medications Acetaminophen TAB* [Tylenol TAB*] 650 mg PO Q6H PRN 08/10/18 [History Confirmed 08/10/18] PMH/Surg Hx/FS Hx/Imm Hx Endocrine/Hematology History: Reports: Hx Diabetes - Type II requiring insulin Denies: Hx Anticoagulant Therapy Cardiovascular History: Reports: Hx Hypertension, Hx Myocardial Infarction, Other Cardiovascular Problems/Disorders - Cardiac Stent 07/10/2014, CVA, DM II, CHRONIC KIDNEY DISEASE STAGE III Denies: Hx Congestive Heart Failure, Hx Pacemaker/ICD Respiratory History: Reports: Other Respiratory Problems/Disorders - hx TB Denies: Hx Asthma GI History: Reports: Hx Gastroesophageal Reflux Disease, Hx Irritable Bowel History: Reports: Hx Renal Disease - CKD stage III Musculoskeletal History: Reports: Hx Back Problems Sensory History: Reports: Hx Contacts or Glasses Denies: Hx Hearing Aid Opthamlomology History: Reports: Hx Contacts or Glasses Neurological History: Reports: Hx CVA - 10/2013, Other Neuro Impairments/ Disorders - hx Shingles Psychiatric History: Reports: Hx Depression Denies: Hx Panic Disorder - Surgical History Surgery Procedure, Year, and Place: hysterectomy; cardiac stents Hx Anesthesia Reactions: No - Immunization History Date of Tetanus Vaccine: PT STATES UNSURE Date of Influenza Vaccine: NONE Infectious Disease History: No Infectious Disease History: Reports: Hx Shingles, Hx Tuberculosis - HISTORY OF ( DOCUMENTED IN CHART BUT PATIENT DENIES) Denies: Traveled Outside the [place] in Last 30 Days - Family History Known Family History: Negative: Diabetes - Social History Alcohol Use: None Substance Use Type: Reports: None Smoking Status (MU): Never Smoked Tobacco Have You Smoked in the Last Year: No Review of Systems Negative: Fever Negative: Chest Pain Negative: Shortness Of Breath Positive: Rash All Other Systems Reviewed And Are Negative: Yes Physical Exam Triage Information Reviewed: Yes Vital Signs On Initial Exam: Initial Vitals Temp Pulse Resp BP Pulse Ox 97.6 F 99 16 139/111 98 08/10/18 16:54 08/10/18 16:54 08/10/18 16:54 08/10/18 16:54 08/10/18 16:54 Vital Signs Reviewed: Yes Appearance: Positive: Well-Appearing Skin: Positive: Warm, Dry, Other - petetchia type rash of right leg, no erythema or warmth to the area Head/Face: Positive: Normal Head/Face Inspection Eyes: Positive: Normal, Conjunctiva Clear ENT: Positive: Pharynx normal Respiratory/Lung Sounds: Positive: Clear to Auscultation, Breath Sounds Present Cardiovascular: Positive: Normal, RRR Musculoskeletal: Positive: Strength/ROM Intact - right leg, Other - good pulses Neurological: Positive: Normal Psychiatric: Positive: Normal Diagnostics - Vital Signs Vital Signs Temp Pulse Resp BP Pulse Ox 08/10/18 16:54 97.6 F 99 16 139/111 98 - Laboratory Lab Statement: Any lab studies that have been ordered have been reviewed, and results considered in the medical decision making process. Course/Dx - Course Course Of Treatment: 88-year-old male presents with rash to right leg since yesterday. He states that she got bit by what she believes is a spider yesterday. She states there was little bump to the area and then afterwards she started to develop the rash. She states the rash is very itchy. She has never had this rash before. States she is not on blood thinners. She is diabetic. She denies any increased swelling to her legs. Denies any fevers. She put some Benadryl cream on the area which helped. No new soaps or products. On exam has a petechial type rash on right leg. Does have a bump which could potentially be a bug bite. Patient is adamant that she was bitten by bug at this time will treat as an allergic reaction. Will add a steroid cream and told to take Benadryl. Told to follow-up with primary. Patient understands and agrees with plan. - Differential Diagnoses - Skin Complaint Differential Diagnoses: Cellulitis, Contact Dermatitis, Local Allergic Reaction - Diagnoses Provider Diagnoses: Rash Discharge - Sign-Out/Discharge Documenting (check all that apply): Patient Departure Patient Received Moderate/Deep Sedation with Procedure: No - Discharge Plan Condition: Good Disposition: HOME Prescriptions: Triamcinolone 0.1% Oint (NF) [Triamcinolone Acetonide] 1 applic TOPICAL DAILY # 1 oin Patient Education Materials: Acute Rash (ED) Referrals: Indra Armijo MD [Primary Care Provider] - Additional Instructions: take benadryl every 6 hours as needed for itching apply ointment to rash daily until resolves follow up with primary Return to ED if develop any new or worsening symptoms - Billing Disposition and Condition Condition: GOOD Disposition: Home
[2018-08-10 18:10] VITALS: BP 149/78
== END | disposition home or self-care (01) ==
LOC: ED 16:43
DX: R21 Rash and other nonspecific skin eruption (principal); I12.9 Hypertensive chronic kidney disease with stage 1 through stage 4 chronic kidney disease, or unspecified chronic kidney disease; E11.22 Type 2 diabetes mellitus with diabetic chronic kidney disease; I25.2 Old myocardial infarction; N18.3 Chronic kidney disease, stage 3 (moderate); K21.9 Gastro-esophageal reflux disease without esophagitis; K58.9 Irritable bowel syndrome, unspecified; F32.9 Major depressive disorder, single episode, unspecified; Z88.5 Allergy status to narcotic agent; Z79.4 Long term (current) use of insulin; Z95.5 Presence of coronary angioplasty implant and graft; Z86.73 Personal history of transient ischemic attack (TIA), and cerebral infarction without residual deficits
CPT/HCPCS: 99281

== ENCOUNTER 2019-06-02 15:32 | Emergency (ER) | payer MEDICARE ==
--- OUTSIDE RECORDS SUMMARY | 2019-06-02 16:07 | XMS REPORT | Continuity of Care Document ---
:1930 External Reference #:[id number] Author Name Mary Rogers M.D. (transmitted by agent of provider Sophy Ross) Address [address] [place] [address] Care Team Providers Name Role Phone Indra Armijo MD - Internal Care Team Information Dental Associate Medicine Problems Active Problems Provider Date Old myocardial infarction Rachel Apodaca MD, [facility], Onset: 11/19/2014 [facility] Localized, primary osteoarthritis of Mary Rogers M.D. Onset: 09/19/2018 the pelvic region and thigh Social History Type Date Description Comments Sex Unknown ETOH Use Denies alcohol use Tobacco Use Start: Unknown Patient has never smoked Smoking Status Reviewed: 05/13/19 Patient has never smoked Exercise Type/Frequency Does not exercise Allergies, Adverse Reactions, Alerts Active Allergies Reaction Severity Comments Date Codeine Nausea and Vomiting 07/23/2014 Morphine 09/19/2018 Medications Active Medications SIG Qnty Indications Ordering Date Provider Lantus Solostar 20 units daily as Unknown directed 100Unit/ML Solution Pen-Inject Acetaminophen Extra 2 tabs by mouth Unknown Strength daily 500mg Tablets Amlodipine Besylate 1 by mouth every Unknown 5mg day Tablets Humalog sliding scale Unknown Duloxetine HCL 1 by mouth every Unknown 60mg Caps day DR Muir Metoprolol Succinate [place], ER MD Indra 25mg Tablets ER 24HR Freestyle Gi 14 Use For Blood Sugar Unknown Day/Sensor/Flash Monitoring as Monitoring System Directed On Package Misc Gabapentin 200mg tid [place], 100mg Capsules MD Indra 1St Tier Unifine Use as Directed Unknown Pentips [id number] Four Times A Day 29G X 12mm Misc Aspirin 81 1 by mouth every Unknown 81mg Tablets day Vitamin D High Potency 2000U once a day Unknown 25mcg (1000 Ut) Capsules Medications Administered in Office Medication SIG Qnty Indications Ordering Provider Date Depomedrol 40MG Mary Rogers M.D. 09/19/2018 Injection Depomedrol 40MG Mary Rogers M.D. 09/19/2018 Injection Immunizations Description No Information Available Vital Signs Date Vital Result Comment 05/13/2019 10:10am Height 64 inches 5'4" Weight 160.00 lb Heart Rate 72 /min BP Systolic 150 mmHg BP Diastolic 78 mmHg Respiratory Rate 18 /min Pain Level 10 BMI (Body Mass Index) 27.5 kg/m2 09/19/2018 3:37pm Height 64 inches 5'4" Weight 160.00 lb Heart Rate 100 /min BP Systolic 130 mmHg BP Diastolic 70 mmHg Body Temperature 98.4 F Pain Level 8 BMI (Body Mass Index) 27.5 kg/m2 Results Description No Information Available Procedures Description No Information Available Medical Devices Description No Information Available Encounters Description No Information Available Assessments Date Code Description Provider 05/13/2019 M25.552 Pain in left hip Mary Rogers M.D. 05/13/2019 M25.551 Pain in right hip Mary Rogers M.D. 05/13/2019 M16.0 Bilateral primary osteoarthritis of hip Mary Rogers M.D. Plan of Treatment 05/13/2019 - Mary Rogers M.D.M25.552 Pain in left hipReferral:Pain Clinic, Pain/Clinic/CTRM25.551 Pain in right hipM16.0 Bilateral primary osteoarthritis of hipFollow up:Follow up: None needed Functional Status Description No Information Available Mental Status Description No Information Available Referrals Refer to Reason for Referral Status Appt Date Pain Clinic chronic bilat hip pain due to oa Created [address] [place] [address] [phone]
[2019-06-02 16:13] VITALS: BP 136/64
--- NOTE | 2019-06-02 16:32 | UC ---
Respiratory Complaint HPI - HPI Summary HPI Summary: Pt present with c/o cough, wheezing, nasal congestion, malaise, fever, chills and body aches X 1 week. - History of Current Complaint Chief Complaint: UCGeneralIllness Stated Complaint: COUGH,CONGESTION Time Seen by Provider: 06/02/19 16:14 Hx Obtained From: Patient Hx Last Menstrual Period: n/a ?: No Onset/Duration: Gradual Onset, Lasting Days - 7, Still Present Timing: Constant Severity Initially: Mild Severity Currently: Moderate Pain Intensity: 0 Character: Cough: Nonproductive Aggravating Factors: Exertion, Deep Breaths, Recumbent Position Alleviating Factors: Nothing Associated Signs And Symptoms: Positive: Fever, Chills, Wheezing, URI, Nasal Congestion - Risk Factors Pulmonary Embolism Risk Factors: Negative Cardiac Risk Factors: Hypertension, Diabetes, CAD Pseudomonas Risk Factors: Negative Tuberculosis Risk Factors: Diabetes - Allergies/Home Medications Allergies/Adverse Reactions: Allergies Allergy/AdvReac Type Severity Reaction Status Date / Time codeine Allergy Severe Vomiting Verified 06/02/19 16:13 morphine Allergy Severe Vomiting Verified 06/02/19 16:13 Home Medications: Home Medications Atorvastatin* [Lipitor 10 MG*] 10 mg PO QPM 07/22/17 [History Confirmed 06/02/19 ] DULoxetine DR CAP* [Cymbalta CAP*] 60 mg PO DAILY 07/22/17 [History Confirmed ] Insulin GLARGINE(*) [Lantus 100 units/ml 10 ml VIAL (*)] 20 units SUBCUT QAM [History Confirmed 06/02/19] Insulin LISPRO* [HumaLOG 100 units/ml 3 ml VIAL *] 0 units SUBCUT DIRECTED [History Confirmed 06/02/19] Metoprolol Succinate XL TAB* [Toprol XL TAB*] 25 mg PO QPM 07/22/17 [History Confirmed 06/02/19] amLODIPine TAB* [Norvasc 5 mg TAB*] 5 mg PO QPM 07/22/17 [History Confirmed 04/22] Aspirin 81 mg CHEW TAB* 81 mg PO DAILY 05/26/18 [History Confirmed 06/02/19] Cholecalciferol TAB* [Vitamin D TAB*] 2,000 units PO EVERY OTHER DAY 05/26/18 [ History Confirmed 06/02/19] Acetaminophen TAB* [Tylenol TAB*] 650 mg PO Q6H PRN 08/10/18 [History Confirmed 06/02/19] DOXYcycline CAP(*) [DOXYcycline 100MG CAP(*)] 100 mg PO Q12H #20 cap 06/02/19 [ Rx] Gabapentin CAP(*) [Neurontin 100 mg CAP(*)] 200 mg PO TID 06/02/19 [History Confirmed 06/02/19] predniSONE [Prednisone 20 MG TAB] 20 mg PO DAILY #4 tablet 06/02/19 [Rx] PMH/Surg Hx/FS Hx/Imm Hx Previously Healthy: Yes Endocrine History: Diabetes Cardiovascular History: Cardiac Disease, Hypertension Other History Of: Negative For: Anticoagulant Therapy - Surgical History Surgical History: Yes Surgery Procedure, Year, and Place: hysterectomy; cardiac stents - Family History Known Family History: Positive: Cardiac Disease Negative: Diabetes - Social History Occupation: Retired Lives: With Family Alcohol Use: None Substance Use Type: None Smoking Status (MU): Never Smoked Tobacco Have You Smoked in the Last Year: No - Immunization History Most Recent Influenza Vaccination: 2013 Most Recent Tetanus Shot: Within 10 years Most Recent Pneumonia Vaccination: 2011 Vaccination Up to Date: Yes Review of Systems All Other Systems Reviewed And Are Negative: Yes Constitutional: Positive: Fever, Chills, Fatigue Skin: Positive: Negative Eyes: Positive: Negative ENT: Positive: Sinus Congestion Respiratory: Positive: Shortness Of Breath, Cough, Other - wheezing Cardiovascular: Positive: Negative Gastrointestinal: Positive: Negative Genitourinary: Positive: Negative Motor: Positive: Negative Neurovascular: Positive: Negative Musculoskeletal: Positive: Myalgia Neurological/Mental Status: Positive: Negative Psychological: Positive: Negative Is Patient Immunocompromised?: No Physical Exam Triage Information Reviewed: Yes Appearance: Well-Appearing Vital Signs: Initial Vital Signs Temp 98.0 F 06/02/19 16:07 Pulse 95 06/02/19 16:07 Resp 18 06/02/19 16:07 BP 136/64 06/02/19 16:07 Pulse Ox 99 06/02/19 16:07 Vital Signs Reviewed: Yes Eye Exam: Normal ENT: Positive: Nasal congestion Dental Exam: Normal Neck exam: Normal Respiratory: Positive: No respiratory distress, Wheezing Cardiovascular Exam: Normal Musculoskeletal Exam: Normal Neurological Exam: Normal Psychological Exam: Normal Skin Exam: Normal Respiratory Course/Dx - Differential Dx/Diagnosis Differential Diagnosis/HQI/PQRI: Influenza, Lower Resp Infection, Pulmonary Embolism Provider Diagnosis: Pneumonia Discharge ED - Sign-Out/Discharge Documenting (check all that apply): Patient Departure All imaging exams completed and their final reports reviewed: No Studies - Discharge Plan Condition: Stable Disposition: HOME Prescriptions: DOXYcycline CAP(*) [DOXYcycline 100MG CAP(*)] 100 mg PO Q12H #20 cap predniSONE [Prednisone 20 MG TAB] 20 mg PO DAILY #4 tablet Patient Education Materials: Pneumonia (ED) Referrals: Indra Armijo MD [Primary Care Provider] - As Soon As Possible Additional Instructions: Please follow up with your PCP as needed. Please note that the medication, prednisone, will increase your glucose levels and you will need to monitor your blood sugar more frequently.If your symptoms do not improve or they worsen, please seek care at the closest emergency room as soon as possible. - Billing Disposition and Condition Condition: STABLE Disposition: Home
[2019-06-02] MEDS ORDERED: DOXYcycline CAP(*) 100 MG PO ONE (16:43)
== END 2019-06-02 16:50 | disposition home or self-care (01) ==
LOC: UCCORT 15:32
DX: J18.9 Pneumonia, unspecified organism (principal); R09.81 Nasal congestion; E11.9 Type 2 diabetes mellitus without complications; I10 Essential (primary) hypertension; Z79.4 Long term (current) use of insulin; Z79.82 Long term (current) use of aspirin; Z95.5 Presence of coronary angioplasty implant and graft; Z79.899 Other long term (current) drug therapy; Z88.5 Allergy status to narcotic agent
CPT/HCPCS: 99212; A9270-GY; G0463; J7512